=== PATIENT | female | born 1980 | race Caucasian/White ===

== ENCOUNTER 2016-11-15 08:19 | Inpatient (IN) | payer BC ==
[~2016-11-15] VITALS: Ht 157.5 cm; Wt 103.2 kg
[2016-11-15] MEDS ORDERED: ACETAMINOPHEN 325 MG TAB PO PRN (08:55)
[2016-11-15] MEDS ORDERED: SALINE FLUSH 10 ML FLUSH PRN (08:55)
[2016-11-15 10:50] VITALS: BP_SYST 112; BP_SYST 118; RESP 16; TEMP 98.2
[2016-11-15 10:51] VITALS: Ht 157.5 cm; Wt 103.2 kg
[2016-11-15] MEDS ORDERED: PNEUMO VAC 25 MCG/0.5 ML VL IM.VACC ONE (10:55)
[2016-11-15] MEDS: CEFTRIAXONE 2 GM in SODIUM CHLORIDE 0.9% 50 ML IV SCH ×2 (11:58→12:55)
[2016-11-15] MEDS: ENOXAPARIN 40 MG/0.4 ML SYR SUBQ SCH (11:59)
[2016-11-15] MEDS: LACT RINGERS 1,000 ML IV SCH (11:59)
[2016-11-15] MEDS ORDERED: OMNIPAQUE 240 MG/ML, 50 ML PO SCH (12:55)
[2016-11-15] MEDS ORDERED: ZOLMITRIPTAN 2.5 MG PO PRN (12:55)
[2016-11-15] MEDS ORDERED: **NOTE TO NURSE XX SCH (13:54)
[2016-11-15] MEDS: CYPROHEPTADINE 4 MG TAB PO SCH (13:59)
[2016-11-15] MEDS: OLANZAPINE 10 MG TAB PO SCH (14:00)
[2016-11-15] MEDS: FLUOXETINE 20 MG CAP PO SCH (14:00)
[2016-11-15] MEDS ORDERED: SCOPOLAMINE PATCH TRANSDERM SCH (14:00)
[2016-11-15] MEDS: SOD CHL NASAL SPR 45ML NARE EACH SCH ×2 (14:01→21:33)
[2016-11-15] MEDS: PANTOPRAZOLE 40 MG TAB PO SCH (14:01)
[2016-11-15] MEDS: [UNRECOGNIZED DRUG - MIXTURE] TOPICAL SCH ×3 (14:24→21:37)
[2016-11-15] MEDS: Cetirizine/PSE 12-Hour Tab PO SCH (14:24)
[2016-11-15] MEDS: NEUPOGEN 480MCG VIAL SUBQ SCH (14:37)
[2016-11-15 15:22] VITALS: BP_SYST 112; RESP 20; TEMP 99.2
[2016-11-15] MEDS: GABAPENTIN 100 MG CAP PO SCH ×2 (16:38→21:35)
[2016-11-15] MEDS: OXYCODONE/APAP 5/325 TAB PO PRN (17:15)
[2016-11-15] MEDS: *HOME MEDS IN MED CART XX SCH (19:56)
[2016-11-15] MEDS: SALINE FLUSH 10 ML FLUSH SCH (19:57)
[2016-11-15 19:59] VITALS: BP_SYST 110; RESP 18
[2016-11-15] MEDS: DILTIAZEM 2% TOPICAL SCH (21:36)
[2016-11-16 01:15] VITALS: BP_SYST 112; RESP 18; TEMP 98.5
[2016-11-16] MEDS: LACT RINGERS 1,000 ML IV SCH (02:56)
[2016-11-16 04:57] VITALS: BP_SYST 116; RESP 20; TEMP 98.7
[2016-11-16] MEDS ORDERED: SODIUM CHLORIDE 0.9% FLUSH BAG 500 ML IV SCH (06:00)
[2016-11-16] MEDS: PANTOPRAZOLE 40 MG TAB PO SCH (07:36)
[2016-11-16 07:42] VITALS: BP_SYST 106; RESP 16; TEMP 98
[2016-11-16] MEDS: *HOME MEDS IN MED CART XX SCH (08:00)
[2016-11-16] MEDS: SALINE FLUSH 10 ML FLUSH SCH (09:36)
[2016-11-16] MEDS: CEFTRIAXONE 2 GM in SODIUM CHLORIDE 0.9% 50 ML IV SCH (09:36)
[2016-11-16] MEDS: SOD CHL NASAL SPR 45ML NARE EACH SCH (09:37)
[2016-11-16] MEDS: CYPROHEPTADINE 4 MG TAB PO SCH (09:37)
[2016-11-16] MEDS: FLUOXETINE 20 MG CAP PO SCH (09:38)
[2016-11-16] MEDS: OLANZAPINE 10 MG TAB PO SCH (09:38)
[2016-11-16] MEDS: ENOXAPARIN 40 MG/0.4 ML SYR SUBQ SCH (09:38)
[2016-11-16] MEDS: GABAPENTIN 100 MG CAP PO SCH (09:38)
[2016-11-16] MEDS: DILTIAZEM 2% TOPICAL SCH (09:39)
[2016-11-16] MEDS: Cetirizine/PSE 12-Hour Tab PO SCH (09:39)
[2016-11-16] MEDS: [UNRECOGNIZED DRUG - MIXTURE] TOPICAL SCH ×2 (09:39→12:31)
[2016-11-16 11:03] VITALS: BP_SYST 121; RESP 16; TEMP 97.5
[2016-11-16] MEDS: OXYCODONE/APAP 5/325 TAB PO PRN (11:27)
[2016-11-16] MEDS: NEUPOGEN 480MCG VIAL SUBQ SCH (12:09)
[2016-11-16 13:58] VITALS: BP_SYST 111; RESP 16; TEMP 98
[2016-11-16 14:00] VITALS: BP_SYST 111; RESP 16; TEMP 98
== END 2016-11-16 15:22 | disposition home or self-care (01) | DRG 690 ==
LOC: ENRESERVDT → ENRESERVTM → ENPENDDIS 10:02 → 4NT 10:02
PROVIDERS: ADMIT Internal Medicine; ATTEND Internal Medicine
DX: N39.0 Urinary tract infection, site not specified (principal); C77.3 Secondary and unspecified malignant neoplasm of axilla and upper limb lymph nodes; D70.9 Neutropenia, unspecified; C50.912 Malignant neoplasm of unspecified site of left female breast; Z68.41 Body mass index [BMI] 40.0-44.9, adult; B95.2 Enterococcus as the cause of diseases classified elsewhere; K21.9 Gastro-esophageal reflux disease without esophagitis; F41.9 Anxiety disorder, unspecified; E66.01 Morbid (severe) obesity due to excess calories; J06.9 Acute upper respiratory infection, unspecified; R11.2 Nausea with vomiting, unspecified; T45.1X5A Adverse effect of antineoplastic and immunosuppressive drugs, initial encounter; E28.2 Polycystic ovarian syndrome; Z23 Encounter for immunization
CPT/HCPCS: 74176; 80048; 81001; 83605; 85025; 87040; 87077; 87088; 87186; 87804; 90732; 99239; 99255